=== PATIENT | female | born 1950 | race Caucasian/White ===

== ENCOUNTER → 2023-06-19 10:10 | Outpatient (REF) | payer MEDICARE, OTHER, SELFPAY ==
--- NOTE | 2023-07-07 08:12 | OID.L.PAT ---
Pulmonary Nodule Pat Letter
- -
07/07/23
ROBERT LAM
[address]
[place], [place] [id number]
Roland JONES,
A pulmonary nodule was seen on an imaging study done by [facility]. This was reviewed by the [facility] Pulmonary Nodule Advisory Board and the following recommendation was made:
Recommendation: Follow up Chest CT in 3 months
If you have any questions, please do not hesitate to contact your primary care physician. If you are in need of a Physician, you can go to [email or web address] and click on 'Find a Provider'. Type 'Family Medicine' in the search.
Oncology Nurse Navigator
[facility]
[phone]
--- NOTE | 2023-07-07 08:13 | OID.L.REC ---
Pulmonary Nodule Follow Up
- Recommendation
07/07/23
Pulmonary Nodule Review Recommendations
Your patient, ROBERT LAM, had a pulmonary nodule seen on a CT Coronary Calcium Score imaging study done on 06/19/23 in the [facility] Radiology Department. This was reviewed by the [facility] Pulmonary Nodule Advisory Board and the
following recommendation was made:
Recommendation: Follow up Chest CT in 3 months
If you have any questions please do not hesitate to contact us.
Sincerely,
Oncology Nurse Navigator
[facility]
[phone]
== END ==
LOC: HWRAD 10:10
PROVIDERS: ATTENDING PHYSICIAN Internal Medicine Cardiovascular Disease; FAMILY PHYSICIAN Internal Medicine
DX: I10 Essential (primary) hypertension (principal); I48.92 Unspecified atrial flutter; I47.10 Supraventricular tachycardia, unspecified; R94.31 Abnormal electrocardiogram [ECG] [EKG]
CPT/HCPCS: 75571

== ENCOUNTER → 2023-08-05 09:41 | Outpatient (REF) | payer MEDICARE, OTHER, SELFPAY | LOC: WDC 09:41 | PROVIDERS: ATTENDING PHYSICIAN Obstetrics & Gynecology Gynecology; FAMILY PHYSICIAN Internal Medicine | DX: R92.2 Inconclusive mammogram (principal); Z80.3 Family history of malignant neoplasm of breast | CPT/HCPCS: 76641 ==

== ENCOUNTER → 2024-03-27 07:56 | Outpatient (REF) | payer MEDICARE, OTHER, SELFPAY | LOC: MRI 3T 07:56 | PROVIDERS: ATTENDING PHYSICIAN Orthopaedic Surgery; FAMILY PHYSICIAN Internal Medicine | DX: M23.91 Unspecified internal derangement of right knee (principal) | CPT/HCPCS: 73721 ==

== ENCOUNTER → 2024-05-04 16:22 | Outpatient (REF) | payer MEDICARE, OTHER, SELFPAY | LOC: WDC 16:22 | PROVIDERS: ATTENDING PHYSICIAN Obstetrics & Gynecology Gynecology; FAMILY PHYSICIAN Internal Medicine | DX: Z12.31 Encounter for screening mammogram for malignant neoplasm of breast (principal) | CPT/HCPCS: 77063; 77067 ==

== ENCOUNTER → 2024-08-24 13:35 | Outpatient (REF) | payer MEDICARE, OTHER, SELFPAY | LOC: WDC 13:35 | PROVIDERS: ATTENDING PHYSICIAN Obstetrics & Gynecology Gynecology; FAMILY PHYSICIAN Internal Medicine | DX: R92.2 Inconclusive mammogram (principal) | CPT/HCPCS: 76641 ==

== ENCOUNTER → 2025-05-09 13:50 | Outpatient (REF) | payer MEDICARE, OTHER, SELFPAY | LOC: WDC 13:50 | PROVIDERS: ATTENDING PHYSICIAN Obstetrics & Gynecology Gynecology; FAMILY PHYSICIAN Internal Medicine | DX: Z12.31 Encounter for screening mammogram for malignant neoplasm of breast (principal) | CPT/HCPCS: 77063; 77067 ==